=== PATIENT | male | born 1960 | race Caucasian/White ===

== ENCOUNTER 2017-02-22 10:05 | Emergency (ER) | payer BC, OTHER ==
[~2017-02-22] VITALS: Ht 177.8 cm; Wt 80.7 kg
[2017-02-22] MEDS ORDERED: CYCLOBENZAPRINE 10 MG TABLET. PO ONE (10:30)
--- NOTE | 2017-02-22 11:08 | RAD ---
CT of the head without contrast, 02/22/2017: History: Fall, pain The ventricles are within normal limits in size. There is no shift of the midline structures. There is no evidence of acute intracranial hemorrhage or mass effect. There is moderate mucosal thickening in the paranasal sinuses, greatest in the maxillary sinuses IMPRESSION: No acute intracranial abnormality is detected. CT of the cervical spine without contrast, 02/22/2017: Noncontrast scans were obtained with multiplanar reconstructions produced. There are mild scattered marginal spurs and posterior disc bulges. No fracture or dislocation is identified. No high-grade spinal stenosis is evident. There is mild calcific plaquing at the carotid bifurcations. IMPRESSION: 1. Mild scattered degenerative changes. 2. No acute bony abnormality is detected. PQRS Compliance Statement: One or more of the following individualized dose reduction techniques were utilized for this examination: 1. Automated exposure control 2. Adjustment of the mA and/or kV according to patient size 3. Use of iterative reconstruction technique
--- NOTE | 2017-02-22 11:21 | RAD ---
CT of the thoracic and lumbar spine without contrast, 02/22/2017: History: Fall, pain Noncontrast scans were obtained with multiplanar reconstructions produced. There are mild scattered spurs in the spine. There are scattered Schmorl's nodes particularly in the lower thoracic region. There are mild degenerative changes involving scattered facet joints in the thoracic spine, particularly in the lower thoracic spine at T10-11. There is a mild vertebral compression fracture at T12 which appears to be recent. This involves primarily the superior endplate anteriorly. The posterior elements appear intact. There is no retropulsion of fracture fragments or significant canal narrowing at this level. In the lumbar spine there are streak artifacts degrading image quality inferiorly. No additional fracture or dislocation is identified. There are mild to moderate degenerative changes involving scattered facet joints. At L3-4 there is poor definition of the posterior disc margin. There appears to be borderline central spinal stenosis and bilateral foraminal narrowing. At L4-5 the posterior disc margin is poorly defined, however, there appears to be moderate broad-based posterior disc bulging with possible inferior migration of a disc fragment. There is mild narrowing of the central spinal canal and mild to moderate bilateral foraminal narrowing at this level. IMPRESSION: 1. Acute, mild T12 vertebral compression fracture. 2. Mild to moderate scattered degenerative changes as described above. PQRS Compliance Statement: One or more of the following individualized dose reduction techniques were utilized for this examination: 1. Automated exposure control 2. Adjustment of the mA and/or kV according to patient size 3. Use of iterative reconstruction technique
[2017-02-22 11:27] VITALS: BP 117/74
[2017-02-22 11:42] LABS: BILIRUBIN,URINE NEGATIVE (NEG); GLUCOSE,URINE NEGATIVE (NEG); NITRITE,URINE NEGATIVE (NEG); PH,URINE 5.5; PROTEIN,URINE NEGATIVE (NEG-TRACE); UROBILINOGEN,URINE 0.2 mg/dL (0.2 mg/dL)
[2017-02-22 11:48] LABS: BARBITURATES NEG (NEG); BENZODIAZEPINES NEG (NEG); CANNABINOIDS NEG (NEG); COCAINE NEG (NEG); METHADONE NEG (NEG); OPIATES NEG (NEG); PHENCYCLIDINE NEG (NEG)
[2017-02-22 11:51] LABS: BACTERIA,URINE FEW /HPF (0-FEW); RBC,URINE 0 /HPF (0-2); SQUAMOUS EPITHELIAL CELL,UR OCC /LPF
[2017-02-22] MEDS ORDERED: CYCL10TA2 PO (12:31)
[2017-02-22] MEDS ORDERED: HYDR-971 PO (12:31)
--- NOTE | 2017-02-22 12:31 | PHYS DOC ---
Past Medical History Past Medical History: No Pertinent History Past Surgical History: No Surgical History Alcohol Use: Heavy Drug Use: None Adult General Chief Complaint Chief Complaint: MECHANICAL FALL HPI HPI Patient is a 56 year old male with history of alcoholism who presents today with mid and low back pain after falling down 11 steps. Patient states he had drunk 2 shots of vodka prior to his fall. Patient denies any loss of consciousness. Denies any neck pain and is refusing a c-collar. Patient denies any loss of bowel or bladder function. Review of Systems Review of Systems Constitutional: Denies fever or chills [] Eyes: Denies change in visual acuity, redness, or eye pain [] HENT: Denies nasal congestion or sore throat [] Respiratory: Denies cough or shortness of breath [] Cardiovascular: No additional information not addressed in HPI [] GI: Denies abdominal pain, nausea, vomiting, bloody stools or diarrhea [] : Denies dysuria or hematuria [] Musculoskeletal: Mid and low back pain Integument: Denies rash or skin lesions [] Neurologic: Denies headache, focal weakness or sensory changes [] Endocrine: Denies polyuria or polydipsia [] Current Medications Current Medications Current Medications Medications (Trade) Dose Ordered Sig/Angelica Start Time Stop Time Status Last Admin Dose Admin Cyclobenzaprine HCl (Flexeril) 10 mg 1X ONCE 02/22/17 10:30 02/22/17 10:31 DC 02/22/17 10:29 10 MG Allergies Allergies Allergies Coded Allergies Type Severity Reaction Last Updated Verified codeine Allergy Intermediate RASH 02/22/17 Yes Physical Exam Physical Exam Constitutional: Well developed, well nourished, no acute distress, non-toxic appearance. [] HENT: Normocephalic, atraumatic, bilateral external ears normal, oropharynx moist, no oral exudates, nose normal. [] Eyes: PERRLA, EOMI, conjunctiva normal, no discharge. [] Neck: Normal range of motion, no cervical spine tenderness, supple, no stridor. [] Cardiovascular:Heart rate regular rhythm, no murmur [] Lungs & Thorax: Bilateral breath sounds clear to auscultation [] Abdomen: Bowel sounds normal, soft, no tenderness, no masses, no pulsatile masses. [] Skin: Warm, dry, no erythema, no rash. [] Back: Moderate thoracic midline tenderness and lumbar spine midline tenderness, no CVA tenderness. [] Extremities: No tenderness, no cyanosis, no clubbing, ROM intact, no edema. [] Neurologic: Alert and oriented X 3, normal motor function, normal sensory function, no focal deficits noted. [] Psychologic: Affect normal, judgement normal, mood normal. [] Current Patient Data Vital Signs Vital Signs Date Time Temp Pulse Resp B/P (MAP) Pulse Ox O2 Delivery O2 Flow Rate FiO2 02/22/17 11:27 66 18 117/74 (88) 96 Room Air 02/22/17 10:05 97.9 97.9 Lab Values Laboratory Tests Test 02/22/17 11:30 Urine Collection Type Void Urine Color Yellow Urine Clarity Clear Urine pH 5.5 Urine Specific [place] <=1.005 Urine Protein Negative mg/dL (NEG-TRACE) Urine Glucose (UA) Negative mg/dL (NEG) Urine Ketones (Stick) Negative mg/dL (NEG) Urine Blood Negative (NEG) Urine Nitrite Negative (NEG) Urine Bilirubin Negative (NEG) Urine Urobilinogen Dipstick 0.2 mg/dL (0.2 mg/dL) Urine Leukocyte Esterase Negative (NEG) Urine RBC 0 /HPF (0-2) Urine WBC 1-4 /HPF (0-4) Urine Squamous Epithelial Cells Occ /LPF Urine Bacteria Few /HPF (0-FEW) Urine Mucus Slight /LPF Urine Opiates Screen Neg (NEG) Urine Methadone Screen Neg (NEG) Urine Barbiturates Neg (NEG) Urine Phencyclidine Screen Neg (NEG) Urine Amphetamine/Methamphetamine Neg (NEG) Urine Benzodiazepines Screen Neg (NEG) Urine Cocaine Screen Neg (NEG) Urine Cannabinoids Screen Neg (NEG) Urine Ethyl Alcohol Pos (NEG) EKG EKG [] Radiology/Procedures Radiology/Procedures []PROCEDURE: CT HEAD AND CERVICAL SPINE WO CT of the head without contrast, 02/22/2017: History: Fall, pain The ventricles are within normal limits in size. There is no shift of the midline structures. There is no evidence of acute intracranial hemorrhage or mass effect. There is moderate mucosal thickening in the paranasal sinuses, greatest in the maxillary sinuses IMPRESSION: No acute intracranial abnormality is detected. CT of the cervical spine without contrast, 02/22/2017: Noncontrast scans were obtained with multiplanar reconstructions produced. There are mild scattered marginal spurs and posterior disc bulges. No fracture or dislocation is identified. No high-grade spinal stenosis is evident. There is mild calcific plaquing at the carotid bifurcations. IMPRESSION: 1. Mild scattered degenerative changes. 2. No acute bony abnormality is detected. PQRS Compliance Statement: One or more of the following individualized dose reduction techniques were utilized for this examination: 1. Automated exposure control 2. Adjustment of the mA and/or kV according to patient size 3. Use of iterative reconstruction technique DICTATED and SIGNED BY: RICA HUGO MD DATE: 02/22/17 1100 CC: CAMACHO BLAKE APRN ~ PROCEDURE: CT LUMBAR SPINE WO CONTRAST; CT THORACIC SPINE WO CONTRAST CT of the thoracic and lumbar spine without contrast, 02/22/2017: History: Fall, pain Noncontrast scans were obtained with multiplanar reconstructions produced. There are mild scattered spurs in the spine. There are scattered Schmorl's nodes particularly in the lower thoracic region. There are mild degenerative changes involving scattered facet joints in the thoracic spine, particularly in the lower thoracic spine at T10-11. There is a mild vertebral compression fracture at T12 which appears to be recent. This involves primarily the superior endplate anteriorly. The posterior elements appear intact. There is no retropulsion of fracture fragments or significant canal narrowing at this level. In the lumbar spine there are streak artifacts degrading image quality inferiorly. No additional fracture or dislocation is identified. There are mild to moderate degenerative changes involving scattered facet joints. At L3-4 there is poor definition of the posterior disc margin. There appears to be borderline central spinal stenosis and bilateral foraminal narrowing. At L4-5 the posterior disc margin is poorly defined, however, there appears to be moderate broad-based posterior disc bulging with possible inferior migration of a disc fragment. There is mild narrowing of the central spinal canal and mild to moderate bilateral foraminal narrowing at this level. IMPRESSION: 1. Acute, mild T12 vertebral compression fracture. 2. Mild to moderate scattered degenerative changes as described above. PQRS Compliance Statement: One or more of the following individualized dose reduction techniques were utilized for this examination: 1. Automated exposure control 2. Adjustment of the mA and/or kV according to patient size 3. Use of iterative reconstruction technique DICTATED and SIGNED BY: RICA HUGO MD DATE: 02/22/17 1106 CC: CAMACHO BLAKE APRN ~ Course & Med Decision Making Course & Med Decision Making Pertinent Labs and Imaging studies reviewed. (See chart for details) Patient is in the ED with the mid back and low back pain after falling down 11 steps. He was drunk when he fell. He refused c-collar on arrival to the ED then later on accepted it. CT of the head and cervical spine were negative for any acute findings, CT of the thoracic spine and lumbar was noted for T12 compression fracture, and bulging disc to the lumbar spine. Consulted with Annette Iniguez's PA who requested patient to be placed in a LSO brace and he can follow-up with Dr. Quinn at the office on . Consulted with [facility] and they will came and provide patient with a brace. Provided patient return precautions and discharged in stable condition. Encouraged him to consider getting help for alcohol abuse. Dragon Disclaimer Dragon Disclaimer This electronic medical record was generated, in whole or in part, using a voice recognition dictation system. Departure Departure Impression: Primary Impression: Compression fx, thoracic spine Additional Impressions: Fall down steps Lumbar contusion ETOH abuse Disposition: 01 HOME, SELF-CARE Condition: STABLE Referrals: NO PCP (PCP) JODY QUINN MD Follow up with him on . Call the office today and confirm your appointment time Patient Instructions: Alcohol Problems, Back, Compression Fracture, Fall Prevention and Home Safety Additional Instructions: You were seen in the ED after falling down some steps. Your CT shows you have T12 compression fracture. Wear the brace provided as ordered. You need to call the provided neurosurgeon today and confirm your appointment for . Scripts Cyclobenzaprine Hcl (CYCLOBENZAPRINE HCL) 10 Mg Tablet 1 TAB PO TID, #30 TAB Prov: HAYDENCAMACHO JOSE RAMON 02/22/17 Hydrocodone/Apap 5-325 (NORCO 5-325 TABLET) 1 Each Tablet 1 TAB PO PRN Q6HRS Y for PAIN, #12 TAB 0 Refills Prov: CAMACHO BLAKE JOSE RAMON 02/22/17 Problem Qualifiers Primary Impression: Compression fx, thoracic spine Encounter type: initial encounter Fracture type: closed Qualified Codes: S22.000A - Wedge compression fracture of unspecified thoracic vertebra, initial encounter for closed fracture Additional Impressions: Fall down steps Encounter type: initial encounter Qualified Codes: W10.8XXA - Fall (on) ( from) other stairs and steps, initial encounter Lumbar contusion Encounter type: initial encounter Qualified Codes: S30.0XXA - Contusion of lower back and pelvis, initial encounter CAMACHO BLAKE APRN Feb 22, 2017 12:31
== END 2017-02-22 13:14 | disposition home or self-care (01) ==
LOC: ER 10:05
DX: S22.089A Unspecified fracture of T11-T12 vertebra, initial encounter for closed fracture (principal); S30.0XXA Contusion of lower back and pelvis, initial encounter; F10.10 Alcohol abuse, uncomplicated; W10.9XXA Fall (on) (from) unspecified stairs and steps, initial encounter; Y93.89 Activity, other specified; Y99.8 Other external cause status; Y92.89 Other specified places as the place of occurrence of the external cause
CPT/HCPCS: 70450; 72125; 72128; 72131; 81001; 99285; G0481